=== PATIENT | male | born 1960 | race African-American/Black ===

== ENCOUNTER 2020-09-16 00:54 | Emergency (ER) | payer SELFPAY ==
[~2020-09-16] VITALS: Ht 175.3 cm; Wt 106.0 kg
[2020-09-16] MEDS ORDERED: KETOROLAC 30MG/ML VIAL IM SCH (01:49)
[2020-09-16 02:44] VITALS: BP 137/78
[2020-09-16] MEDS ORDERED: NAPR-681 PO (03:00)
== END 2020-09-16 03:59 | disposition home or self-care (01) ==
LOC: ER 00:54
DX: R60.0 Localized edema (principal); M79.661 Pain in right lower leg
CPT/HCPCS: 93971; 96372; 99284; J1885

== ENCOUNTER 2022-04-30 04:30 | Emergency (ER) | payer SELFPAY ==
[~2022-04-30] VITALS: Ht 172.7 cm; Wt 100.0 kg
[~2022-04-30 04:30] MED LIST: NAPR-681 PO
[2022-04-30 05:00] VITALS: BP 148/99
[2022-04-30 07:58] LABS: BASOPHILS % 0.4 % (0.0-2.0); EOSINOPHILS % 0.2 % (0.0-5.0); HEMATOCRIT. 43.9 % (42.0-52.0); HEMOGLOBIN. 14.9 g/dL (14.0-18.0); LYMPHOCYTES % 15.3 % (20.0-50.0); MEAN CORPUSCULAR HEMOGLOBIN 30.6 pg (28.0-32.0); MEAN CORPUSCULAR VOLUME 90.1 fL (80.0-94.0); MEAN PLATELET VOLUME 10.7 fl (7.4-10.4); MONOCYTES % 10.6 % (2.0-8.0); NEUTROPHILS % 73.5 % (40.0-76.0); PLATELET 124 x1000/uL (130-400); RED BLOOD CELL COUNT 4.87 mill/uL (4.7-6.1); RED CELL DISTRIBUTION WIDTH 13.2 % (11.6-14.6)
[2022-04-30 08:41] LABS: CHLORIDE 102 mEq/L (98-107)
[2022-04-30 08:48] LABS: ETHANOL BLOOD < 10 mg/dL
[2022-04-30 11:37] LABS: CLARITY URINE CLEAR (CLEAR); COLOR URINE DARK YELLOW (YELLOW); KETONES URINE 3+ (NEGATIVE); LEUKOCYTE ESTERASE URINE 1+ (NEGATIVE); NITRITE URINE NEGATIVE (NEGATIVE); OCCULT BLOOD URINE NEGATIVE (NEGATIVE); PROTEIN URINE TRACE (NEGATIVE); SPECIFIC GRAVITY URINE 1.023 (1.005-1.030)
[2022-04-30 12:30] LABS: *AMPHETAMINES SCREEN URINE NEGATIVE (NEGATIVE); *BARBITURATES SCREEN URINE NEGATIVE (NEGATIVE); *BENZODIAZEPINES SCREEN URINE NEGATIVE (NEGATIVE); *COCAINE SCREEN URINE PRESUMTIVE POSITIVE (NEGATIVE); CANNABINOID URINE SCREEN NEGATIVE (NEGATIVE); METHADONE URINE SCREEN NEGATIVE (NEGATIVE); OPIATES URINE SCREEN NEGATIVE (NEGATIVE); PHENCYCLIDINE URINE SCREEN NEGATIVE (NEGATIVE)
== END 2022-04-30 14:00 | disposition home or self-care (01) ==
LOC: ER 04:30
DX: F19.10 Other psychoactive substance abuse, uncomplicated (principal); F20.9 Schizophrenia, unspecified
CPT/HCPCS: 36415; 80053; 80305; 80320; 81003; 85025; 99283; G0480

== ENCOUNTER 2022-09-14 14:28 | Emergency (ER) | payer MEDICAID ==
[~2022-09-14] VITALS: Ht 182.9 cm; Wt 88.0 kg
[2022-09-14 14:42] VITALS: BP 139/80
[2022-09-14] MEDS ORDERED: IBUPROFEN 600MG TABLET PO STA (16:39)
[2022-09-14] MEDS ORDERED: NAPR-681 PO (18:36)
[2022-09-14] MEDS ORDERED: CYCL5TAB PO (18:36)
== END 2022-09-14 21:48 | disposition home or self-care (01) ==
LOC: ER 14:28
DX: S16.1XXA Strain of muscle, fascia and tendon at neck level, initial encounter (principal); M54.9 Dorsalgia, unspecified; M25.562 Pain in left knee; M25.561 Pain in right knee; F20.9 Schizophrenia, unspecified; V43.62XA Car passenger injured in collision with other type car in traffic accident, initial encounter; Y93.89 Activity, other specified; Y92.410 Unspecified street and highway as the place of occurrence of the external cause
CPT/HCPCS: 73562; 99283; Z7610

== ENCOUNTER 2025-03-28 01:52 | Emergency (ER) | payer MEDICAID ==
[~2025-03-28] VITALS: Ht 182.9 cm; Wt 95.0 kg
[~2025-03-28 01:52] MED LIST changes: +CYCL5TAB3 PO
[2025-03-28 01:54] VITALS: TEMP 36.5; O2SAT 98
[2025-03-28] MEDS: KETOROLAC 15MG/ML VIAL IM ONE (04:25)
[2025-03-28] MEDS ORDERED: LIDO-53 TP (05:28)
[2025-03-28] MEDS ORDERED: NAPR-1176 MT (05:28)
[2025-03-28 05:55] VITALS: BP 124/89; PULSE 87; RESP 16; O2SAT 100
== END 2025-03-28 05:59 | disposition home or self-care (01) ==
LOC: ER 01:52
DX: M79.604 Pain in right leg (principal); R60.9 Edema, unspecified; F14.90 Cocaine use, unspecified, uncomplicated; Z79.1 Long term (current) use of non-steroidal anti-inflammatories (NSAID); Z79.899 Other long term (current) drug therapy
CPT/HCPCS: 99284; 73560; 73590; 96372; J1885